=== PATIENT | female | born 1985 | race Caucasian/White ===

== ENCOUNTER 2020-01-30 08:57 | Emergency (ER) | payer OTHER, SELFPAY ==
--- NOTE | 2020-01-30 09:01 | XRR_ITS ---
PROCEDURE INFORMATION: Exam: XR Left Finger(s) Exam date and time: 01/30/2020 9:25 AM Age: 34 years old Clinical indication: Injury or trauma; Other: Laceration; Left; Ring finger; Injury date: 01/30/20; Injury details: Hit 4th finger on wood splitter; Prior surgery; Surgery type: Skin graft; Additional info: 4th digit - laceration TECHNIQUE: Imaging protocol: XR Left fingers. Views: Minimum 2 views. COMPARISON: CR Hand 3 views, LEFT* [id number] 09/08/2014 11:01 PM FINDINGS: Bones/joints: There is a nondisplaced fracture of the 4th distal phalanx. No dislocation. Soft tissues: There is soft tissue swelling involving the 4th distal phalanx. No radiopaque soft tissue foreign body. XR/XR finger LT min 2V 69901 IMPRESSION: 4th distal phalangeal fracture.
--- NOTE | 2020-01-30 09:03 | W.ED.UPPEXIN ---
HPI - Extremity Injury (Upper) General: Chief Complaint: Extremity Injury, Upper Stated Complaint: left hand injury Time Seen by Provider: 01/30/20 08:58 History of Present Illness: HPI narrative: 34-year-old female patient presents to the emergency department with left fourth finger injury. She reports was pulling wood from a wood splitter when her hand came back hitting the splitter. She reports fourth finger with nail injury, left hand Associated symptoms: Denies neck pain or weakness in extremities Review of Systems General: Reports: 10 or more systems reviewed and unremarkable except in HPI and below Const: Denies: fever(s), chills or diaphoresis Eyes: Denies: blurry vision or eye redness ENMT: Denies: throat pain, dental pain or disequilibrium Card: Denies: chest pain, palpitations or irregular heart rhythm Resp: Denies: dyspnea, productive cough, non-productive cough or wheezing GI: Denies: abdominal pain, nausea or vomiting : Denies: difficulty voiding or dysuria Musc: Reports: joint swelling (4th left finger); Denies: neck pain or back pain Skin/Breast: Denies: rash or pruritus Neuro: Denies: headache(s), weakness in extremities or behavioral changes Psych: Denies: anxiety or depression Wil/Lymph: Denies: easy bruising Physical Exam Const: COMMON NORMALS: no acute distress, patient oriented x3, healthy appearing and alert GENERAL APPEARANCE: cooperative, comfortable and well hydrated HENMT: COMMON NORMALS: normocephalic, Normal external nose present and moist oral mucous membranes HEAD & SCALP: normocephalic NOSE: Normal external nose present Eye: COMMON NORMALS: Equal, round and reactive pupils present and EOMs intact bilaterally GENERAL EYE: appearance normal, both eyes and all related structures PUPIL: Yes Equal, round and reactive pupils present Neck/C-Spine: COMMON NORMALS: full ROM and no lymphadenopathy GENERAL: Yes normal visual inspection and Yes trachea midline CERVICAL SPINE: Yes cervical ROM normal Lymph: LYMPHATIC: no lymphadenopathy noted Chest: COMMONS NORMALS: normal inspection of the chest Resp: COMMON NORMALS: normal respiratory effort and clear to auscultation bilaterally AUSCULTATION: clear to auscultation bilaterally Cardio: COMMON NORMALS: regular rhythm, S1 normal heart sound present and S2 normal heart sound present RHYTHM: regular rhythm HEART SOUNDS: S1 normal heart sound present and S2 normal heart sound present GI: COMMON NORMALS: Soft to palpation and non-tender INSPECTION: Yes normal to inspection PALPATION: Yes Soft to palpation : COMMON NORMALS: Yes no CVA tenderness BLADDER/KIDNEY EXAM: Yes no CVA tenderness Back/Pelvis: COMMON NORMALS: no CVA tenderness and thoracic and lumbar spine normal to inspection Extremity: COMMON NORMALS: normal to inspection and capillary refill normal GENERAL: Yes normal exam except as noted RIGHT UPPER EXTREMITY: Yes hand & digits (left hand without pain/injury/swelling) Right hand and digits: Yes inspection (Left fourth digit, nail laceration), Yes palpation (Tenderness left fourth finger), Yes ROM exam, Yes neurovascular exam (Distally intact) and Yes tendon exam (Pain with flexion/extension, full ROM intact to the fourth left digit) Neuro: COMMON NORMALS: patient oriented x3 and no focal motor deficits SENSORIUM/ORIENTATION: Yes alert Psych: COMMON NORMALS: mental status grossly normal, Normal thought process present and cooperative ACTIVITY/MOTOR BEHAVIOR: Yes appropriate eye contact THOUGHT PROCESS: Normal thought process present Skin: COMMON NORMALS: no rashes or lesions noted and turgor normal GENERAL SKIN EXAM: no rashes or lesions noted and turgor normal Procedures Laceration Laceration 1: Site: hand (4th digit - distal) Side (If applicable): left Size (cm): 2.5 Description: linear, contaminated and other (contused, involves the nail, laceration noted through the nail, distally to the nailbed, distal nail removed for inspection) Depth: simple, single layer Pre-repair: wound explored, irrigated extensively, deep structures intact and extensive debridement Skin layer closed with: nylon Size (cm): 4-0 Number of sutures: 2 Technique: simple, interrupted Nerve Block Nerve Block 1: Time out performed: Yes Local Anesthetic: lidocaine 1% Amount of anesthesia used (mL): 8 Side: left (left 4th finger) Nerve Blocks: digital Procedure Successful: Yes Patient Tolerated Procedure: well Complications: none Course ED course: 34-year-old female patient presents to the emergency department with laceration/nail injury to the fourth finger of the left hand. Open distal phalanx fracture appreciated, distal nail removed for visual inspection, 2 sutures placed after digital block completed, thorough wound cleaning completed with extensive irrigation. Patient administered hydrocodone here in the ED for pain. Prescription for hydrocodone and Augmentin given to the patient, case reviewed with Dr. Mcdermott for hydrocodone prescription. No further orders. Patient instructed on follow-up and need to monitor for signs and symptoms of infection. Questions were answered, results were discussed. Vital Signs: Vital signs: Vital Signs Temperature 97.5 F L 01/30/20 09:09 Pulse Rate 79 01/30/20 09:13 Respiratory Rate 16 01/30/20 09:13 Blood Pressure 139/90 01/30/20 09:09 Pulse Oximetry 98 01/30/20 09:13 MDM - Extremity Injury (Upper) Imaging Data^: Xray Ortho: Radiologist's impression: [address] [address] XRay Report Signed Patient: Eloisa Balbuena Unit #: [id number] : 1985 Age/Sex: 34 / F ADM Date: 01/30/20 Loc: ER Room/Bed: Attending Dr: Ordering Provider/Ordering MD: Coral Lomeli Date of Service: 01/30/20 Procedure(s): XR finger LT min 2V 93089 Accession Number(s): [id number] Report Number: [id number] PROCEDURE INFORMATION: Exam: XR Left Finger(s) Exam date and time: 01/30/2020 9:25 AM Age: 34 years old Clinical indication: Injury or trauma; Other: Laceration; Left; Ring finger; Injury date: 01/30/20; Injury details: Hit 4th finger on wood splitter; Prior surgery; Surgery type: Skin graft; Additional info: 4th digit - laceration TECHNIQUE: Imaging protocol: XR Left fingers. Views: Minimum 2 views. COMPARISON: CR Hand 3 views, LEFT* [id number] 09/08/2014 11:01 PM FINDINGS: Bones/joints: There is a nondisplaced fracture of the 4th distal phalanx. No dislocation. Soft tissues: There is soft tissue swelling involving the 4th distal phalanx. No radiopaque soft tissue foreign body. XR/XR finger LT min 2V 50020 IMPRESSION: 4th distal phalangeal fracture. Dictated By: Jerome Vega Signed By: Jerome Vega Signed Date/Time: 01/30/20 1012 DD/ 1012 Discharge Plan Discharge Patient Disposition: Home Clinical Impression: Fracture of finger of left hand Qualifiers: Encounter type: initial encounter Finger: ring finger Fracture type: open Phalanx: distal Fracture alignment: nondisplaced Qualified Code(s): S62.665B - Nondisplaced fracture of distal phalanx of left ring finger, initial encounter for open fracture Laceration of finger of left hand Qualifiers: Encounter type: initial encounter Finger: ring finger Damage to nail status: with damage Foreign body presence: without foreign body Qualified Code(s): S61.315A - Laceration without foreign body of left ring finger with damage to nail, initial encounter Condition: Stable Prescriptions: New hydrocodone-acetaminophen 5-325 mg tablet 1 tab PO QID PRN (Reason: pain) Qty: 14 RF: 0 Augmentin 875-125 mg tablet 1 tab PO Q12H Qty: 14 RF: 0 Discharge Orders: Discharge Order (Routine); Ordered 01/30/20 Ordered By: Coral Lomeli Referrals: Maria Teresa Bailey FNP [Primary Care Provider] - Discharge Diet: Usual diet Discharge Activity: Limit activity as instructed Patient Instructions: Finger Fracture (ED), Finger Laceration (ED) Activity Restrictions/Additional Instructions: Keep the left hand elevated at all times, this will help with swelling and pain Follow-up with orthopedic surgery in 2 to 3 days for reevaluation, do not get the left hand wet. Keep the finger splint on at all times Keep the dressing on at all times You may loosen the dressing if the dressing feels too tight Return to the emergency department if you develop fever, chills, increased fourth digit finger pain, red streaking or malodorous smell from the wound No work with the left upper extremity until follow-up with orthopedics. social services coordinator will be contacting you with orthopedic follow-up, appointment time and date. take augmentin until all gone, even if improved Stand Alone Forms: Work/School Release Coding Level of Care Code ED Security System Sales Consult[employer] for [employer] Exam Comprehensive
[2020-01-30 09:09] VITALS: BP 139/90; PULSE 82; RESP 16; TEMP 36.4; O2SAT 99; BMI 30.2
[2020-01-30 09:13] VITALS: PULSE 79; RESP 16; O2SAT 98
--- NOTE | 2020-01-30 09:13 | PC.NURSE ---
XR performed at bedside
[2020-01-30] MEDS: tetanus-dipt-pertussis 0.5 mL SDV IM (09:16)
[2020-01-30] MEDS: lidocaine 1% INJ 20 mL INJECTION (10:12)
[2020-01-30] MEDS: HYDROcodone-acetaminophen 5-325 mg Tablet 1 TAB PO (10:15)
[2020-01-30] MEDS: cephALEXin 500 mg Capsule PO (10:15)
--- NOTE | 2020-01-30 11:03 | DCPLANNER ---
stock room manager had message to schedule a follow up appointment for patient with ortho. stock room manager called the ortho clinic, spoke with Irina, gave clinic patients information. stock room manager was told that patients information would be printed and reviewed. Clinic will call patient with appointment information.
--- NOTE | 2020-02-02 15:08 | DCPLANNER ---
Patient has a follow up appointment scheduled for Wednesday, February 07, 2020 at 12:[address] Zavaleta at the ortho clinic. Clinic will call patient with appointment information.
--- NOTE | 2020-02-09 15:48 | DCPLANNER ---
Patient had a follow up appointment scheduled for 02.07.20 with ortho - patient did attend appointment.
== END 2020-01-30 10:40 | disposition home or self-care (01) ==
PROVIDERS: Emergency Provider Nurse Practitioner Family; PCP Nurse Practitioner
DX: S62.665B Nondisplaced fracture of distal phalanx of left ring finger, initial encounter for open fracture (principal); S61.315A Laceration without foreign body of left ring finger with damage to nail, initial encounter; Z23 Encounter for immunization; W22.09XA Striking against other stationary object, initial encounter
CPT/HCPCS: 12001; 12345; 73140; 90471; 90715; 99282; 99283

== ENCOUNTER → 2020-02-07 16:02 | Outpatient (BNVA) | payer OTHER, SELFPAY | PROVIDERS: PCP Nurse Practitioner; Visit Provider Specialist | DX: S62.631A Displaced fracture of distal phalanx of left index finger, initial encounter for closed fracture (principal); X58.XXXA Exposure to other specified factors, initial encounter | CPT/HCPCS: 73130 ==

== ENCOUNTER → 2020-06-25 18:22 | Outpatient (BNVA) | payer BC, SELFPAY | PROVIDERS: Visit Provider Nurse Practitioner Family | DX: Z20.2 Contact with and (suspected) exposure to infections with a predominantly sexual mode of transmission (principal); Z68.28 Body mass index [BMI] 28.0-28.9, adult; F17.210 Nicotine dependence, cigarettes, uncomplicated | CPT/HCPCS: 87086; 87491; 87591; 87661 ==